=== PATIENT | female | born 1990 ===

== ENCOUNTER 2025-03-05 13:15 | Inpatient (IN) | payer OTHER ==
[~2025-03-05] VITALS: Ht 165.1 cm; Wt 97.1 kg
[2025-03-20 04:53] VITALS: BP 115/76
[2025-03-20] MEDS ORDERED: RINGERS SOLUTION,LACTATED 1,000 ML IV SCH (05:45)
[2025-03-20] MEDS ORDERED: AMPICILLIN SODIUM 2,000 MG VIAL IV ONE (05:45)
[2025-03-20] MEDS ORDERED: MORPHINE SULFATE 4 MG/ML CARTRIDGE IV PRN ×2 (07:00→22:45)
[2025-03-20] MEDS ORDERED: PRENATA CHEWAB1 EACH PO (07:02)
[2025-03-20] MEDS ORDERED: IRON18 M1 PO (07:02)
[2025-03-20 07:04] LABS: URINE APPEARANCE Cloudy; URINE BILIRRUBIN Negative (NEGATIVE); URINE BLOOD Large; URINE COLOR Yellow; URINE GLUCOSE Negative (NEGATIVE); URINE KETONE 15 (NEGATIVE); URINE LEUKOCYTE Moderate; URINE NITRATE Negative; URINE PROTEIN 30 (NEGATIVE); URINE UROBILINOGEN 0.2 E.U./dl
[2025-03-20 07:09] LABS: INR 0.94; URINE BACTERIA 1455.5 uL (0.0-1933); URINE EPITHELIAL CELLS 21.2 uL (0.0-38.8); URINE RBC 1696.7 uL (0.0-20.8); URINE WBC 521.7 uL (0.0-23.2)
[2025-03-20 07:10] LABS: BASO % 0.4 % (0.1-1.2); EOS # 0.16 (0.04-0.54); EOS % 1.2 % (0.7-7.0); LYMPH # 1.21 (1.18-3.74); LYMPH % 8.9 % (19.3-53.1); MEAN PLATELET VOLUME 10.60 fl (9.4-12.4); MONO # 0.91 (0.24-0.82); MONO % 6.7 % (4.7-12.5); NEUT # 11.22 (1.56-6.13); NEUT % 82.5 % (34.0-71.1); RED CELL DISTRIBUTION WIDTH 14.3 % (11.6-14.4)
[2025-03-20 07:14] LABS: URINE CAST 0.14 uL (0.0-1.40)
[2025-03-20 07:28] VITALS: BP 128/80
[2025-03-20 07:54] LABS: ALT/SGPT 37.0 U/L (12-78); AST/SGOT 27.0 U/L (15-37); BILIRUBIN TOTAL 0.26 mg/dL (0.3-1.2); BUN CREA RATIO 28.0 (7.0-25.0); CREATININE SERUM 0.47 mg/dL (0.55-1.02); GFR 153.56; GLOBULINA 3.5 G/DL (2.4-3.5); GLUCOSE FASTING 89.0 mg/dL (65-100); OSMOLALITY SERUM 277.0 MOSM/KG (275-295)
[2025-03-20] MEDS ORDERED: AMPICILLIN SODIUM 1,000 MG VIAL IV SCH (09:00)
[2025-03-20 15:07] VITALS: BP 139/77
[2025-03-20] MEDS ORDERED: MISOPROSTOL 25 MCG/4 ML GEL.W.APPL VAG ONE (20:00)
[2025-03-20 21:24] VITALS: BP 121/69
[2025-03-20 23:15] VITALS: BP 100/61
[2025-03-21 03:05] VITALS: BP 118/67
[2025-03-21 07:35] VITALS: BP 114/65
[2025-03-21] MEDS ORDERED: OXYTOCIN 20 UNITS/500ML RL PIGGYBAG IV SCH (09:45)
[2025-03-21 11:01] VITALS: BP 116/60
[2025-03-21] MEDS ORDERED: KETOROLAC TROMETHAMINE 60 MG VIAL IM ONE (16:15)
[2025-03-21] MEDS ORDERED: MORPHINE SULFATE 4 MG/ML CARTRIDGE IV SCH (17:00)
[2025-03-21] MEDS ORDERED: MORPHINE SULFATE 4 MG/ML VIAL IV ONE (18:15)
[2025-03-21 18:50] VITALS: BP 129/77
[2025-03-21 21:48] LABS: BASO % 0.3 % (0.1-1.2); EOS # 0.04 (0.04-0.54); EOS % 0.3 % (0.7-7.0); LYMPH # 1.45 (1.18-3.74); LYMPH % 12.1 % (19.3-53.1); MEAN PLATELET VOLUME 10.30 fl (9.4-12.4); MONO # 1.12 (0.24-0.82); MONO % 9.4 % (4.7-12.5); NEUT # 9.26 (1.56-6.13); NEUT % 77.5 % (34.0-71.1); RED CELL DISTRIBUTION WIDTH 14.4 % (11.6-14.4)
[2025-03-22] VITALS: BP 133/84
[2025-03-22] MEDS ORDERED: ACETAMINOPHEN 325 MG TABLET PO SCH (08:00)
[2025-03-22] MEDS ORDERED: OxyCODONE HCL 5 MG TABLET (ROXICODONE) PO SCH (08:00)
[2025-03-22 08:35] VITALS: BP 122/82
[2025-03-22] MEDS ORDERED: SIMETHICONE 125 MG CAPSULE PO SCH (09:00)
[2025-03-22] MEDS ORDERED: DOCUSATE SODIUM 100MG CAP PO SCH (09:00)
[2025-03-22 12:48] VITALS: BP 127/82
[2025-03-22 16:00] VITALS: BP 131/86
[2025-03-23] VITALS: BP 132/89
[2025-03-23] MEDS ORDERED: COLACE100 MG PO (08:06)
[2025-03-23] MEDS ORDERED: IBU800 MG PO (08:06)
[2025-03-23] MEDS ORDERED: SIMETHICONE125 M1 PO (08:07)
[2025-03-23 08:42] VITALS: BP 125/80; O2SAT 97
== END 2025-03-23 14:55 | disposition home or self-care (01) | DRG 788 ==
LOC: LDR 03-20 05:24 → OB/GYN 03-20 13:15 → O/R 03-21 14:30 → OB/GYN 03-21 15:43
PROVIDERS: ADMIT Specialist; ATTEND Specialist
PROC: 3E0P7VZ Introduction of Hormone into Female Reproductive, Via Natural or Artificial Opening (ICD-10-PCS; 2025-03-20)
PROC: 4A1HXCZ Monitoring of Products of Conception, Cardiac Rate, External Approach (ICD-10-PCS; 2025-03-20)
PROC: 10D00Z1 Extraction of Products of Conception, Low, Open Approach (ICD-10-PCS; principal; 2025-03-21)
PROC: 3E033VJ Introduction of Other Hormone into Peripheral Vein, Percutaneous Approach (ICD-10-PCS; 2025-03-21)
DX: O76 Abnormality in fetal heart rate and rhythm complicating labor and delivery (principal); O36.8330 Maternal care for abnormalities of the fetal heart rate or rhythm, third trimester, not applicable or unspecified; O99.824 Streptococcus B carrier state complicating childbirth; Z3A.40 40 weeks gestation of pregnancy; Z37.0 Single live birth